=== PATIENT | male | born 1960 | race Caucasian/White ===

== ENCOUNTER 2022-01-14 19:17 | Emergency (ER) | payer SELFPAY ==
[~2022-01-14] VITALS: Ht 170.2 cm; Wt 80.0 kg
[2022-01-14 19:26] VITALS: BP 144/87
== END 2022-01-14 23:10 | disposition left against medical advice (07) ==
LOC: ER 19:17
DX: Z53.21 Procedure and treatment not carried out due to patient leaving prior to being seen by health care provider (principal)

== ENCOUNTER 2023-01-26 11:02 | Emergency (ER) | payer SELFPAY ==
[~2023-01-26] VITALS: Ht 175.3 cm; Wt 68.0 kg
[2023-01-26 11:16] VITALS: BP 112/75
== END 2023-01-26 11:30 | disposition home or self-care (01) ==
LOC: ER 11:02
DX: Z00.00 Encounter for general adult medical examination without abnormal findings (principal); Z59.00 Homelessness unspecified
CPT/HCPCS: 99283